=== PATIENT | male | born 1950 | race Caucasian/White ===

== ENCOUNTER 2017-06-30 23:59 | Inpatient (IN) | payer MEDICARE, OTHER ==
[~2017-06-30] VITALS: Ht 177.8 cm; Wt 100.2 kg
[2017-07-01] MEDS ORDERED: HYDROCHLOROTH12.5 M2 ORAL (00:05)
[2017-07-01] MEDS ORDERED: ATORVASTATIN CA10 MG ORAL (00:05)
[2017-07-01] MEDS ORDERED: LOSARTAN POTASS25 MG ORAL (00:05)
[2017-07-01] MEDS ORDERED: ASPIR-LOW81 MG ORAL (00:05)
[2017-07-01] MEDS ORDERED: METOPROLOL SUCC25 MG ORAL (00:05)
[2017-07-01 00:58] LABS: BASOPHILS % (AUTO) 1.1 % (0.0-2.0); EOSINOPHILS % (AUTO) 2.3 % (0.0-3.0); HEMATOCRIT 41.9 % (42.0-52.0); HEMOGLOBIN 13.8 G/DL (14.2-18.0); LYMPHOCYTES % (AUTO) 26.8 % (20.0-45.0); MEAN CORPUSCULAR VOLUME 85 FL (80-99); MONOCYTES % (AUTO) 9.2 % (1.0-10.0); NEUTROPHILS % (AUTO) 60.6 % (45.0-75.0); PLATELET COUNT 373 K/UL (150-450); RED BLOOD COUNT 4.92 M/UL (4.70-6.10); RED CELL DISTRIBUTION WIDTH 13.6 % (11.6-14.8); WHITE BLOOD COUNT 8.8 K/UL (4.8-10.8)
[2017-07-01 01:03] LABS: ANION GAP 8 mmol/L (5-15); BLOOD UREA NITROGEN 30 mg/dL (7-18); CALCIUM 9.6 MG/DL (8.5-10.1); CARBON DIOXIDE 26 MMOL/L (21-32); CHLORIDE 104 MMOL/L (98-107); CREATININE 1.7 MG/DL (0.55-1.30); SODIUM 138 MMOL/L (136-145)
[2017-07-01 01:16] LABS: ALANINE AMINOTRANSFERASE 31 U/L (12-78); ALBUMIN/GLOBULIN RATIO 0.7 (1.0-2.7); ALKALINE PHOSPHATASE 96 U/L (46-116); ASPARTATE AMINO TRANSFERASE 27 U/L (15-37); BILIRUBIN,TOTAL 0.3 MG/DL (0.2-1.0); CKMB 7.9 NG/ML (0.0-3.6); CREATINE KINASE 166 U/L (26-308)
[2017-07-01] MEDS ORDERED: Enoxaparin 100mg Inj SUBQ ONE (01:45)
[2017-07-01 02:16] VITALS: BP 127/77
--- NOTE | 2017-07-01 02:53 | Emergency Room Report ---
History of Present Illness General Chief Complaint: Chest Pain Source: Patient Present Illness HPI Is a 67-year-old male with a history of SVT. He failed two ablation. He is currently taking metoprolol for rate control. He said that he get frequent SVT. Patient presents with SVT starting about 3.5-4 hours prior to arrival. He and his girlfriend were on their way to [facility] because he was getting chest pain with this. Pain was substernal without any radiation. Pain was severe. No nausea no vomiting. No exertional component. Because of the pain, the pulled over and called 911. EMS gave him nitroglycerin and aspirin. His pain resolved abruptly. Also has SVT converted to a sinus rhythm abruptly. By the time he got here he is in no pain. Patient also said he had a cardiac EKG done 2-3 weeks ago and was unremarkable. Also had a recent echocardiogram unremarkable. Allergies: Coded Allergies: No Known Allergies (Unverified , 07/01/17) Patient History Past Medical History: see triage record, old chart reviewed, HTN, CAD, CHF Past Surgical History: other Pertinent Family History: none Social History: Denies: smoking Immunizations: other Reviewed Nursing Documentation: PMH: Agreed, PSxH: Agreed Nursing Documentation-PMH Hx Cardiac Problems: Yes - CHF, SVT Hx Cancer: Yes - bladder, prostate Review of Systems Eye: Denies: eye pain, blurred vision ENT: Denies: ear pain, nose congestion, throat swelling Respiratory: Denies: cough, shortness of breath Cardiovascular: Reports: chest pain, palpitations Gastrointestinal: Denies: abdominal pain, diarrhea, nausea, vomiting Musculoskeletal: Denies: back pain, joint pain Skin: Denies: rash Neurological: Denies: headache, numbness Endocrine: Denies: increased thirst, increased urine Hematologic/Lymphatic: Denies: easy bruising All Other Systems: negative except mentioned in HPI Physical Exam Vital Signs Date Time Temp Pulse Resp B/P (MAP) Pulse Ox O2 Delivery O2 Flow Rate FiO2 06/30/17 23:58 98.2 80 14 106/69 97 Room Air 98.2 vitals normal Sp02 EP Interpretation: reviewed, normal General Appearance: well appearing, no apparent distress, alert Head: normocephalic, atraumatic Eyes: bilateral eye PERRL, bilateral eye EOMI ENT: hearing grossly normal, normal pharynx Neck: full range of motion, supple, no meningismus Respiratory: chest non-tender, lungs clear, normal breath sounds Cardiovascular #1: regular rate, rhythm, no murmur Gastrointestinal: normal bowel sounds, non tender, no mass, no organomegaly, no bruit, non-distended Musculoskeletal: back normal, gait/station normal, normal range of motion Psychiatric: mood/affect normal Skin: warm/dry Medical Decision Making Diagnostic Impression: Primary Impression: NSTEMI, initial episode of care ER Course This patient presents with chest pain and palpitation from SVT. His troponin is positive. He was given aspirin by EMS already. I gave Lovenox here. At one point, he wanted to leave AGAINST MEDICAL ADVICE because he didn't want to stay in the hospital. With the help of his girlfriend, I was able to convince him to stay for further workup. He does not have a STEMI. Therefore unable to transfer to [facility] on an emergent basis. His BNP is elevated but he showed no evidence of fluid overloaded. I also discussed the case with his senior controller Dr. Boss, #[phone]. He also recommend patient to be admitted to the hospital. Patient has [facility] insurance. I discussed case with Dr. Garzon who will admit for Dr. Nix. EKG Diagnostic Results Rate: normal Rhythm: NSR ST Segments: other - bifasicular block Rhythm Strip Diag. Results Rhythm Strip Time: 02:53 EP Interpretation: yes Rate: 72 Rhythm: NSR, no PVC's, no ectopy Chest X-Ray Diagnostic Results Chest X-Ray Diagnostic Results : Chest X-Ray Ordered: Yes # of Views/Limited/Complete: 1 View Indication: Chest Pain EP Interpretation: Yes Interpretation: no consolidation, no effusion, no pneumothorax, no acute cardiopulmonary disease Impression: No acute disease Electronically Signed by: Carlos Laws MD Last Vital Signs Date Time Temp Pulse Resp B/P (MAP) Pulse Ox O2 Delivery O2 Flow Rate FiO2 07/01/17 02:16 98.2 77 14 127/77 97 Room Air 98.2 Status: improved Disposition: ADMITTED INPATIENT Condition: Serious Referrals: [facility],REFERRING (PCP) CARLOS LAWS M.D. Jul 01, 2017 02:53
[2017-07-01 04:30] VITALS: BP 157/78
[2017-07-01] MEDS ORDERED: Milk of Magnesia 30ml Ud ORAL PRN (05:30)
[2017-07-01] MEDS ORDERED: Metoprolol Succinate XL 25mg tab ORAL SCH ×2 (06:00→21:00)
[2017-07-01 08:00] VITALS: BP 110/61
[2017-07-01] MEDS ORDERED: Aspirin EC 81mg tab ORAL SCH (09:00)
[2017-07-01] MEDS ORDERED: hydroCHLOROthiazide 12.5mg TAB ORAL SCH (09:00)
[2017-07-01] MEDS ORDERED: Losartan 50mg tab ORAL SCH (09:00)
[2017-07-01 09:44] LABS: ANION GAP 7 mmol/L (5-15); BLOOD UREA NITROGEN 28 mg/dL (7-18); CALCIUM 9.5 MG/DL (8.5-10.1); CARBON DIOXIDE 25 MMOL/L (21-32); CHLORIDE 105 MMOL/L (98-107); CREATININE 1.4 MG/DL (0.55-1.30); POTASSIUM 4.3 MMOL/L (3.5-5.1); SODIUM 137 MMOL/L (136-145)
[2017-07-01 09:49] VITALS: BP 110/61
--- NOTE | 2017-07-01 10:38 | Cardiology Report ---
APPROVED REPORT EKG Measurement Heart [id number] Normal sinus rhythm Right bundle branch block Left anterior fascicular block Bifascicular block Left ventricular hypertrophy with repolarization abnormality Abnormal ECG
--- NOTE | 2017-07-01 10:43 | Diagnostic Imaging Report ---
Indication: Dyspnea Comparison: None A single view chest radiograph was obtained. Findings: Cardiomediastinal appearance is within normal limits for age. Pulmonary vascularity is appropriate. The diaphragmatic contour is smooth and costophrenic angles are sharp. No pleural effusions are identified. The bones are unremarkable. Impression: No acute findings
[2017-07-01] MEDS ORDERED: Enoxaparin 100mg Inj SUBQ SCH (14:00)
--- NOTE | 2017-07-01 19:02 | Consultation ---
DATE OF CONSULTATION: 07/01/2017 CARDIOLOGY CONSULTATION CONSULTING PHYSICIAN: Kamaljit Zaidi M.D. REQUESTING PHYSICIAN: Enrique Nix M.D. REASON FOR CONSULTATION: Acute myocardial infarction. HISTORY OF PRESENT ILLNESS: The patient is a 67-year-old white male with a known history of paroxysmal supraventricular tachyarrhythmias. Two years ago, he underwent attempted ablation on two occasions which were both not totally successful. Since that time, his frequency of SVT has decreased to approximately twice a year. He describes these episodes as lasting several hours, resolving and associated with mild shortness of breath or chest pain. Last night while working on his computer, he again had an episode of SVT, which he himself describes in that manner. This time, the episode lasted more than three hours and was associated with significant chest pain and shortness of breath. He has his partner drive him to the hospital, but en route he felt so bad they had to stop and call paramedics and were brought to this emergency room. Upon arrival, his initial troponin level was over 3 and his SVT spontaneously converted. Apparently, the patient was at [facility] several weeks ago with "heart failure exacerbation." He had not been on any medications prior to that and was discharged on metoprolol and hydrochlorothiazide as well as losartan. He did not have any stress test or cardiac catheterization procedures done. PAST MEDICAL HISTORY: Hypertension, history of prostate cancer in remission. MEDICATIONS: Reviewed and reconciled. SOCIAL HISTORY: Nonsmoker. No alcohol use. FAMILY HISTORY: Noncontributory. REVIEW OF SYSTEMS: A 10-point review of systems performed all systems negative other than noted above. PHYSICAL EXAMINATION: VITAL SIGNS: Blood pressure 106/69, pulse 80, respirations 14, and afebrile. NECK: Supple. LUNGS: Clear. CARDIAC: Regular. Normal S1 and S2 with a fourth heart sound. ABDOMEN: Soft and nontender. EXTREMITIES: No edema. NEUROLOGIC: Nonfocal. LABORATORY AND DIAGNOSTIC DATA: EKG reveals sinus rhythm with occasional PACs, right bundle and left anterior superior blocks are noted as well as left ventricular hypertrophy with repolarization changes. Lab notable for potassium of 4.3, BUN 28, and creatinine 1.4. Repeat troponin is now 11.8 and natriuretic peptide on admission was almost 2000. IMPRESSION: 1. Acute myocardial infarction. 2. Paroxysmal supraventricular tachyarrhythmias. 3. 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 4. Acute on chronic diastolic congestive heart failure. 5. Protein-calorie malnutrition. 6. Chronic kidney disease. PLAN: The patient is high risk for further complications and deterioration. His condition is presently critical. I have contacted his usual care team under his insurance plan at [facility] and he should be transferred urgently to that facility so that he may undergo cardiac catheterization and possibly repeat electrophysiologic study. At the present time until his transfer, he will be treated with nitrates, beta-blockers and anti-platelet therapy as well as anticoagulants. Kamaljit Zaidi M.D. DR: ERIKA JOB#: [id number] CC:
[2017-07-01] MEDS ORDERED: Atorvastatin 80mg tab ORAL SCH (21:00)
[2017-07-02] MEDS ORDERED: Losartan 50mg tab ORAL SCH (09:00)
--- NOTE | 2017-07-02 10:05 | Discharge Summary ---
Discharge Summary Hospital Course Date of Admission Jul 01, 2017 at 03:12 Date of Discharge Jul 01, 2017 at 13:05 Admitting Diagnosis NSTEMI HPI Kamaljit Plummer is a 67 year old male who was admitted on Jul 01, 2017 at 03:[address]vated Myocardial Infarction Hospital Course [id number] Discharge Discharge Disposition Patient was discharged to Acute Care Facility(02) Discharge Diagnoses: Vivian Sales NP Jul 02, 2017 10:05
--- NOTE | 2017-07-02 14:25 | Cardiology Report ---
APPROVED REPORT EKG Measurement Heart [id number] Sinus rhythm with premature atrial complexes Right bundle branch block Left anterior fascicular block Bifascicular block Left ventricular hypertrophy with repolarization abnormality Abnormal ECG
--- NOTE | 2017-07-02 22:45 | Discharge Summary 2 SIG ---
DATE OF ADMISSION: 07/01/2017 DATE OF DISCHARGE: 07/01/2017 SCIENCE INTERPRETER: Kamaljit Zaidi M.D. BRIEF HOSPITAL COURSE: The patient is a 67-year-old white male with known history of paroxysmal supraventricular tachyarrhythmias, two years ago underwent attempted ablation on two occasions, which were both not totally successful. Since that time, frequency of SVT has decreased to approximately twice a year. The night prior to admission, he again had an episode of SVT that lasted more than three hours with significant chest pain and shortness of breath. His partner drove him to the hospital, however, en route he felt so bad, they had to call paramedics and he was eventually taken to [facility] where on evaluation, initial troponin was 3.7 and his SVT has spontaneously converted. EKG revealed sinus rhythm with occasional PACs, right bundle and left anterior superior block as well as left ventricular hypertrophy with repolarization changes. Repeat troponin went up to 11.8. He was transferred urgently to [facility] for cardiac catheterization. FINAL DIAGNOSES: 1. Acute myocardial infarction. 2. Paroxysmal supraventricular tachyarrhythmia. 3. 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 4. Acute on chronic diastolic congestive heart failure. 5. Protein-calorie malnutrition. 6. Chronic kidney disease. DISPOSITION: The patient was transferred to [facility]. Enrique Nix M.D. I have been assigned to dictate discharge summary on this account and I was not involved in the patient's management. Vivian Saels N.P. DR: DENISHA JOB#: [id number] CC: POONAM
== END 2017-07-01 13:05 | disposition short-term general hospital (02) | DRG 280 ==
LOC: EDBD 23:59 → EMR 07-01 02:35 → 2E 07-01 03:12 → EDBEDREQ 07-01 03:20
DX: I21.9 Acute myocardial infarction, unspecified (principal); I50.33 Acute on chronic diastolic (congestive) heart failure; E46 Unspecified protein-calorie malnutrition; I45.2 Bifascicular block; I13.0 Hypertensive heart and chronic kidney disease with heart failure and stage 1 through stage 4 chronic kidney disease, or unspecified chronic kidney disease; I47.1 Supraventricular tachycardia; N18.9 Chronic kidney disease, unspecified; Z85.46 Personal history of malignant neoplasm of prostate; I25.10 Atherosclerotic heart disease of native coronary artery without angina pectoris; Z85.51 Personal history of malignant neoplasm of bladder
CPT/HCPCS: 36415; 71045; 80048; 80053; 82550; 82553; 83880; 84484; 85025; 93005; 99285